=== PATIENT | male | born 1945 | race Caucasian/White ===

== ENCOUNTER 2016-11-10 23:29 | Emergency (ER) | payer OTHER ==
[2016-11-10] MEDS ORDERED: DIAZEPAM 5 MG TAB PO ONE (23:42)
[2016-11-10 23:56] LABS: BASOPHILS % (AUTO) 1 % (0-3); EOSINOPHILS % (AUTO) 4 % (0-9); HEMATOCRIT 38 % (39-53); MEAN CORPUSCULAR HGB CONC 34.8 gm/dl (32.0-36.0); MEAN CORPUSCULAR VOLUME 87 fL (80-100); MONOCYTES % (AUTO) 15.9 % (0-12); NEUTROPHILS % (AUTO) 54.1 % (37-80)
[2016-11-11] VITALS: TEMP 99.3
[2016-11-11] MEDS ORDERED: DIAZEPAM 5 MG TAB ONE (00:02)
[2016-11-11 00:14] LABS: CALCIUM 8.9 mg/dl (8.5-10.1); GLOM FILT RATE 72 mL/min (>60); POTASSIUM 3.8 mMol/L (3.5-5.1); SODIUM 137 mMol/L (136-145)
[2016-11-11 00:35] LABS: APPEARANCE,URINE Clear; BILIRUBIN,URINE NEGATIVE (NEGATIVE); COLOR,URINE Yellow; GLUCOSE, URINE (UA) NEGATIVE (NEGATIVE); KETONES,URINE NEGATIVE (NEGATIVE); LEUKOCYTE ESTERASE ,URINE NEGATIVE (NEGATIVE); NITRATE,URINE NEGATIVE (NEGATIVE); OCCULT BLOOD,URINE NEGATIVE (NEG-TRACE); UROBILINOGEN,URINE 0.2 (0.2-1.0 EU)
[2016-11-11 00:44] LABS: RBC,URINE 0-1 (0-3AV/HPF); WBC,URINE 0-2 (0-5AV/HPF)
[2016-11-11 01:07] VITALS: BP 132/72; PULSE 94; RESP 16; O2SAT 93
== END 2016-11-11 02:20 | DRG 886 ==
LOC: ED 23:29
DX: F91.8 Other conduct disorders (principal)
CPT/HCPCS: 36415; 80048; 81001; 84484; 85025; 93005; 99284